=== PATIENT | male | born 1960 | race Caucasian/White ===

== ENCOUNTER 2025-03-14 14:32 | Emergency (ER) | payer OTHER ==
[~2025-03-14] VITALS: Ht 182.9 cm; Wt 102.1 kg
[2025-03-14] MEDS ORDERED: AMLODIPINE-OLM1 EAC2 PO (15:16)
[2025-03-14] MEDS ORDERED: TAMSULOSIN HCL 0.4 MG CAP PO ONE ×2 (16:41→16:45)
[2025-03-14 16:48] LABS: BASO % 0.8 % (0.1-1.2); EOS # 0.11 (0.04-0.54); EOS % 1.7 % (0.7-7.0); LYMPH # 1.69 (1.18-3.74); LYMPH % 26.4 % (19.3-53.1); MEAN PLATELET VOLUME 9.50 fl (9.4-12.4); MONO # 0.85 (0.24-0.82); NEUT # 3.68 (1.56-6.13); NEUT % 57.6 % (34.0-71.1); RED CELL DISTRIBUTION WIDTH 12.0 % (11.6-14.4)
[2025-03-14 16:59] LABS: MONO % 13.3 % (4.7-12.5)
[2025-03-14 17:07] LABS: URINE APPEARANCE Clear; URINE BILIRRUBIN Negative (NEGATIVE); URINE BLOOD Negative; URINE COLOR Yellow; URINE GLUCOSE Negative (NEGATIVE); URINE KETONE Negative (NEGATIVE); URINE LEUKOCYTE Negative; URINE NITRATE Negative; URINE PROTEIN Negative (NEGATIVE); URINE UROBILINOGEN 0.2 E.U./dl
[2025-03-14 17:08] LABS: URINE EPITHELIAL CELLS 2.9 uL (0.0-38.8); URINE WBC 12.6 uL (0.0-23.2)
[2025-03-14 17:12] LABS: URINE BACTERIA 3.5 uL (0.0-1933); URINE CAST 0.00 uL (0.0-1.40); URINE RBC 1.3 uL (0.0-20.8)
[2025-03-14 17:54] LABS: ALT/SGPT 21.0 U/L (12-78); AST/SGOT 18.0 U/L (15-37); BILIRUBIN TOTAL 0.91 mg/dL (0.3-1.2); BUN CREA RATIO 20.0 (7.0-25.0); CREATININE SERUM 1.34 mg/dL (0.70-1.30); GFR 53.5; GLOBULINA 3.4 G/DL (2.4-3.5); GLUCOSE FASTING 98.0 mg/dL (65-100); OSMOLALITY SERUM 292.0 MOSM/KG (275-295); PROSTATIC SPECIFIC ANTIGEN 1.02 NG/ML (0.010-4.00)
[2025-03-14] MEDS ORDERED: MIRALAX17 GM PO (18:27)
[2025-03-14] MEDS ORDERED: TAMS0.4C PO (18:27)
== END 2025-03-14 19:55 ==
LOC: ER 14:33
PROVIDERS: General Practice
DX: N40.0 Benign prostatic hyperplasia without lower urinary tract symptoms (principal); N28.1 Cyst of kidney, acquired; N20.0 Calculus of kidney; K59.00 Constipation, unspecified; K40.90 Unilateral inguinal hernia, without obstruction or gangrene, not specified as recurrent; K42.9 Umbilical hernia without obstruction or gangrene; I70.8 Atherosclerosis of other arteries